=== PATIENT | female | born 1935 | race African-American/Black ===

== ENCOUNTER 2023-12-19 13:32 | Emergency (ER) | payer MEDICARE ==
[~2023-12-19] VITALS: Ht 157.5 cm; Wt 51.3 kg
[2023-12-19 13:37] VITALS: TEMP 97.5
[2023-12-19 16:45] VITALS: PULSE 80; RESP 16
[2023-12-19 17:03] VITALS: BP 111/74; PULSE 81; RESP 16; O2SAT 100
== END 2023-12-19 16:54 ==
LOC: ER 14:00
DX: Z04.3 Encounter for examination and observation following other accident (principal); W18.39XA Other fall on same level, initial encounter; Y92.89 Other specified places as the place of occurrence of the external cause; G30.9 Alzheimer's disease, unspecified; F02.80 Dementia in other diseases classified elsewhere, unspecified severity, without behavioral disturbance, psychotic disturbance, mood disturbance, and anxiety; I10 Essential (primary) hypertension; E78.5 Hyperlipidemia, unspecified; N28.9 Disorder of kidney and ureter, unspecified; M54.9 Dorsalgia, unspecified; G89.29 Other chronic pain
CPT/HCPCS: 70450; 99284

== ENCOUNTER 2025-01-18 12:53 | Emergency (ER) | payer MEDICARE ==
[~2025-01-18] VITALS: Ht 157.5 cm; Wt 51.3 kg
[2025-01-18 13:22] VITALS: PULSE 60; RESP 18; TEMP 98.8; O2SAT 100
[2025-01-18] MEDS: LIDOCAINE HCL 1% LOCAL INJ 20 ML VIAL INJ ONE (14:15)
== END 2025-01-18 18:59 | disposition home or self-care (01) ==
LOC: ER 12:59
DX: Z48.02 Encounter for removal of sutures (principal); I12.9 Hypertensive chronic kidney disease with stage 1 through stage 4 chronic kidney disease, or unspecified chronic kidney disease; N18.9 Chronic kidney disease, unspecified; E78.5 Hyperlipidemia, unspecified; M54.9 Dorsalgia, unspecified; G89.29 Other chronic pain; G30.9 Alzheimer's disease, unspecified; F02.80 Dementia in other diseases classified elsewhere, unspecified severity, without behavioral disturbance, psychotic disturbance, mood disturbance, and anxiety
CPT/HCPCS: 99283; J2003